=== PATIENT | female | born 1995 | race African-American/Black ===

== ENCOUNTER 2016-08-03 04:26 | Emergency (ER) | payer BC, OTHER ==
[~2016-08-03] VITALS: Ht 157.5 cm; Wt 70.4 kg
[2016-08-03 04:27] VITALS: TEMP 36.7; Ht 157.5 cm; Wt 70.4 kg
[2016-08-03] MEDS ORDERED: SODIUM CHLORIDE 0.9% 1000ML 1,000 ML IV STA ×2 (04:41)
--- NOTE | 2016-08-03 04:42 | EMERGENCY ROOM VISIT NOTE ---
History Report prepared by Sarthak: Dl Estrella Under the Supervision of: Dr. Sera Randhawa D.O. First contact with patient: 04:30 Chief Complaint: VOMITING Stated Complaint: THROWING UP BILE Nursing Triage Summary: Vomiting and abdominal pain since 0100. History of Present Illness The patient is a 21 year old female who presents to the Emergency Room with complaints of persistent vomiting that started at 0100 this morning. The patient started feeling nauseous between [id number] last night. She woke up with the vomiting. She also has complaints of chills and diarrhea. She denies any fevers, abdominal pain or urinary symptoms. The patient's boyfriend had similar symptoms several days ago. She ate wings for dinner last night. The patient does not have any medical problems or take any medications regularly. LNMP was three weeks ago. Source of History: patient Onset: 0100 this morning Position: other (GI) Quality: other (vomiting) Timing: other (persistent) Associated Symptoms: + chills, + diarrhea, + nausea, No abdominal pain, No fevers, No urinary symptoms Review of Systems See HPI for pertinent positives & negatives. A total of 10 systems reviewed and were otherwise negative. Past Medical & Surgical Medical Problems: (1) No known health problems Family History No pertinent family history Social History Smoking Status: Never Smoker Occupation Status: [employer] student Current/Historical Medications No Active Prescriptions or Reported Meds Allergies Coded Allergies: Penicillins (Verified Allergy, Unknown, unknown, 08/03/16) Physical Exam Vital Signs Date Time Temp Pulse Resp B/P Pulse Ox O2 Delivery O2 Flow Rate FiO2 08/03/16 05:43 81 18 107/73 99 Room Air 08/03/16 04:27 36.7 62 18 115/60 94 Room Air Physical Exam HEENT: Head - normocephalic and atraumatic Pupils are equal, round, and reactive to light. Extraocular eye muscles are intact, and sclera are anicteric. Nose - moist nasal mucosa without discharge. Mouth - moist buccal mucosa. Oropharynx is nonerythematous and there is no tonsillar exudate or edema noted. Neck: Supple; no JVD, nuchal rigidity, cervical lymphadenopathy. Heart: Regular rate and rhythm. There is a normal S1 and S2 with no murmurs, clicks, or gallops appreciated. Lungs: Clear to auscultation bilaterally with no wheezes, rales, or rhonchi. Abdomen: Soft, completely nontender, nondistended, with good bowel sounds. There are no palpable pulsatile masses or hepatosplenomegaly. There is no guarding, rigidity, or rebound noted. Extremities: No evidence of cyanosis, clubbing, or edema. There are easily palpable peripheral pulses. Skin: warm and dry with good turgor and no rashes. Medical Decision & Procedures Laboratory Results 08/03/16 04:40 Red Blood Count 4.83, Mean Corpuscular Volume 88.2, Mean Corpuscular Hemoglobin 30.6, Mean Corpuscular Hemoglobin Concent 34.7, Mean Platelet Volume 11.4, Neutrophils (%) (Auto) 87.5, Lymphocytes (%) (Auto) 5.3, Monocytes (%) (Auto) 6.4, Eosinophils (%) (Auto) 0.3, Basophils (%) (Auto) 0.1, Neutrophils # (Auto) 16.65, Lymphocytes # (Auto) 1.01, Monocytes # (Auto) 1.22, Eosinophils # (Auto) 0.06, Basophils # (Auto) 0.02 08/03/16 04:40 Test 08/03/16 04:40 White Blood Count 19.03 K/uL (4.8-10.8) Red Blood Count 4.83 M/uL (4.2-5.4) Hemoglobin 14.8 g/dL (12.0-16.0) Hematocrit 42.6 % (37-47) Mean Corpuscular Volume 88.2 fL (80-100) Mean Corpuscular Hemoglobin 30.6 pg (25-34) Mean Corpuscular Hemoglobin Concent 34.7 g/dl (32-36) Platelet Count 308 K/uL (130-400) Mean Platelet Volume 11.4 fL (7.4-10.4) Neutrophils (%) (Auto) 87.5 % Lymphocytes (%) (Auto) 5.3 % Monocytes (%) (Auto) 6.4 % Eosinophils (%) (Auto) 0.3 % Basophils (%) (Auto) 0.1 % Neutrophils # (Auto) 16.65 K/uL (1.4-6.5) Lymphocytes # (Auto) 1.01 K/uL (1.2-3.4) Monocytes # (Auto) 1.22 K/uL (0.11-0.59) Eosinophils # (Auto) 0.06 K/uL (0-0.5) Basophils # (Auto) 0.02 K/uL (0-0.2) RDW Standard Deviation 42.1 fL (36.4-46.3) RDW Coefficient of Variation 12.9 % (11.5-14.5) Immature Granulocyte % (Auto) 0.4 % Immature Granulocyte # (Auto) 0.07 K/uL (0.00-0.02) Anion Gap 9.0 mmol/L (3-11) Est Creatinine Clear Calc Drug Dose 93.7 ml/min Estimated GFR () 109.6 Estimated GFR (Non- 94.6 BUN/Creatinine Ratio 15.7 (10-20) Calcium Level 9.1 mg/dl (8.5-10.1) Total Bilirubin 0.5 mg/dl (0.2-1) Direct Bilirubin 0.1 mg/dl (0-0.2) Aspartate Amino Transf (AST/SGOT) 14 U/L (15-37) Alanine Aminotransferase (ALT/SGPT) 20 U/L (12-78) Alkaline Phosphatase 45 U/L (45-117) Total Protein 7.8 gm/dl (6.4-8.2) Albumin 3.9 gm/dl (3.4-5.0) Lipase 108 U/L (73-393) Laboratory results per my review. Medications Administered Medications (Trade) Dose Ordered Sig/Lily Route Start Time Stop Time Status Last Admin Dose Admin Ondansetron HCl 4 mg 4 mg STK-MED ONCE .ROUTE 08/03/16 04:45 08/03/16 04:46 DC 08/03/16 04:44 4 MG Sodium Chloride 1,000 ml @ 999 mls/hr Q1H1M STAT IV 08/03/16 04:41 08/03/16 05:41 DC 08/03/16 04:44 999 MLS/HR Sodium Chloride (Nss 1000ml) 1,000 ml @ 250 mls/hr Q4H STAT IV 08/03/16 04:41 08/03/16 08:40 08/03/16 04:41 250 MLS/HR Procedure Medications administered include NSS IV, Zofran IV. ED Course 0435: Past medical records reviewed. The patient was evaluated in room B6. A complete history and physical exam was performed. An IV lock was initiated and labs are drawn as above. 0441: NSS 1000 ml @ 250 mls/hr, NSS 1000 ml @ 999 mls/hr. 0445: Zofran 4 mg IV. 0528: The patient is feeling much better and her nausea is resolved. She will try drinking fluids before being discharged. The patient was able to drink water without any difficulty. Medical Decision The patient is a 21 year old female who presents to the ED with vomiting. Differential diagnosis includes food borne illness, gastroenteritis, viral illness, colitis, appendicitis. Laboratory interpretation: white count 19.0, stable H&H, 87% neutrophils, normal LFTs, normal lipase, normal renal function. This is a 21-year-old female patient who developed a sudden onset of vomiting this evening. She then developed some diarrhea. After receiving IV Zofran and IV crystalloid therapy here in the emergency department, the patient much better. It seems that the patient most likely contracted what her boyfriend suffered from just a couple of days ago. I instructed the patient to rest over the next couple of days. She should take a bland diet along with plenty of clear liquids. Impression Primary Impression: Nausea, vomiting, and diarrhea Scribe Attestation The scribe's documentation has been prepared under my direction and personally reviewed by me in its entirety. I confirm that the note above accurately reflects all work, treatment, procedures, and medical decision making performed by me. Departure Information Dispostion Home / Self-Care Prescriptions No Active Prescriptions or Reported Meds Referrals No Doctor, Assigned (PCP) Forms HOME CARE DOCUMENTATION FORM, IMPORTANT VISIT INFORMATION Patient Instructions My [facility], Vomit Diarrhea Self Care Additional Instructions Rest. Take plenty of clear liquids and a bland diet. If you develop any abdominal pain, fever or worsening symptoms, return to the ER.
[2016-08-03] MEDS ORDERED: ONDANSETRON INJ 2 MG/ML 2 ML VIAL ONE (04:45)
[2016-08-03 04:49] LABS: BASO % 0.1 %; BASO ABS # 0.02 K/uL (0-0.2); COMPLETE YES; EOS % 0.3 %; HEMATOCRIT 42.6 % (37-47); IG% 0.4 %; LYMPH % 5.3 %; LYMPH ABS # 1.01 K/uL (1.2-3.4); MEAN CELL VOLUME 88.2 fL (80-100); MEAN CORPUSCULAR HEMOGLOBIN 30.6 pg (25-34); MEAN CORPUSCULAR HGB CONC 34.7 g/dl (32-36); MEAN PLATELET VOLUME 11.4 fL (7.4-10.4); MONO % 6.4 %; NEUT % 87.5 %; PLATELET COUNT 308 K/uL (130-400); RED BLOOD COUNT 4.83 M/uL (4.2-5.4); WHITE BLOOD COUNT 19.03 K/uL (4.8-10.8)
[2016-08-03 05:06] LABS: BUN/CREATININE RATIO 15.7 (10-20); CALCIUM 9.1 mg/dl (8.5-10.1); CREATININE 0.88 mg/dl (0.60-1.20); POTASSIUM 3.6 mmol/L (3.5-5.1)
[2016-08-03 05:43] VITALS: BP 107/73; PULSE 81; O2SAT 99
== END 2016-08-03 05:59 | disposition home or self-care (01) ==
LOC: C.EDB 04:28
DX: R11.2 Nausea with vomiting, unspecified (principal); R19.7 Diarrhea, unspecified; Z88.0 Allergy status to penicillin